=== PATIENT | female | born 1960 | race Caucasian/White ===

== ENCOUNTER 2018-11-06 05:16 | Inpatient (IN) | payer OTHER ==
[2018-11-06] MEDS: CEFAZOLIN 2 GM/50 ML (PMX) 50 ML IVPB (06:20)
[2018-11-06] MEDS: LACTATED RINGER'S 1,000 ML IV* (06:21)
[2018-11-06] MEDS ORDERED: GELATIN SIZE 100 SPONGE (06:43)
[2018-11-06] MEDS: BUPIVACAINE 0.25% (MPF) 30 ML INJ (06:44)
[2018-11-06] MEDS: POLYMYXIN/BACITRACIN 1L IRRIG (06:44)
[2018-11-06] MEDS ORDERED: THROMBIN 5000 UNIT VIAL (06:44)
[2018-11-06] MEDS ORDERED: MIDAZOLAM 1 MG/ML 2 ML INJ (06:56)
[2018-11-06] MEDS ORDERED: FENTAnyl 50 MCG/ML VIAL (06:56)
[2018-11-06] MEDS ORDERED: DESFLURANE 15 MIN (07:00)
[2018-11-06] MEDS ORDERED: FENTAnyl 50 MCG/ML VIAL IV (07:00)
[2018-11-06] MEDS ORDERED: LABETALOL HCL 20MG INJ IV (07:00)
[2018-11-06] MEDS ORDERED: CEFAZOLIN 1 GM INJ (07:00)
[2018-11-06] MEDS ORDERED: HYDROmorphONE 1 MG/5 ML IV SYRINGE IV ×2 (07:00)
[2018-11-06] MEDS ORDERED: METOCLOPRAMIDE 10 MG INJ IV (07:00)
[2018-11-06] MEDS ORDERED: ALBUTEROL 0.083% (NEB) 2.5 MG/3 ML AMP HHN (07:00)
[2018-11-06] MEDS ORDERED: PROPOFOL 20 ML (09:14)
[2018-11-06] MEDS ORDERED: ROCURONIUM 50 MG INJ (09:14)
[2018-11-06] MEDS ORDERED: SUCCINYLCHOLINE CHLORIDE 100 MG/5 ML SYG IV (09:14)
[2018-11-06] MEDS ORDERED: SUGAMMADEX SODIUM 200 MG/2 ML VIAL IV (09:14)
[2018-11-06] MEDS ORDERED: LIDOCAINE 100 MG SYRINGE (09:14)
[2018-11-06] MEDS ORDERED: DEXAMETHASONE 4 MG/ML 5 ML INJ (09:16)
[2018-11-06] MEDS ORDERED: ONDANSETRON 4 MG INJ (09:16)
[2018-11-06] MEDS ORDERED: ZOLPIDEM 5 MG TAB PO (10:00)
[2018-11-06] MEDS ORDERED: DIAZEPAM 5 MG/ML SYG IM (10:00)
[2018-11-06] MEDS ORDERED: CEPASTAT LOZENGE MT (10:00)
[2018-11-06] MEDS ORDERED: NALOXONE (0.4 MG/ML) INJ IV (10:00)
[2018-11-06] MEDS ORDERED: BETHANECHOL 25 MG TAB PO (10:00)
[2018-11-06] MEDS ORDERED: DIAZEPAM 5 MG TAB PO (10:00)
[2018-11-06] MEDS ORDERED: DIPHENHYDRAMINE 50 MG CAP PO (10:00)
[2018-11-06] MEDS ORDERED: NACL 0.9% 3 ML SYG IV (10:00)
[2018-11-06] MEDS ORDERED: PROCHLORPERAZINE 10 MG TAB PO (10:00)
[2018-11-06] MEDS ORDERED: AL HYDROX/MG HYDROX/SIMETH 30 ML CUP PO (10:00)
[2018-11-06] MEDS: HYDROmorphONE 1 MG/5 ML IV SYRINGE IV (10:17)
[2018-11-06] MEDS: MEPERIDINE 25 MG INJ IV (10:17)
[2018-11-06] MEDS: FENTAnyl 50 MCG/ML VIAL IV (10:18)
[2018-11-06] MEDS: ONDANSETRON 4 MG INJ IV ×3 (10:18→22:31)
[2018-11-06] MEDS: HYDROmorphONE 0.2 MG/ML PCA IV ×2 (10:29→21:09)
[2018-11-06] MEDS: DIPHENHYDRAMINE 50 MG INJ IV (10:45)
[2018-11-06] MEDS: DEXTROSE 5%-0.45% NACL 1,000 ML IV ×3 (11:51→23:36)
[2018-11-06] MEDS: CEFAZOLIN 1 GM/50 ML (PMX) 50 ML IVPB ×3 (11:52→22:33)
[2018-11-06] MEDS: RANITIDINE 150 MG TAB PO (21:07)
[2018-11-07 05:17] LABS: HEMATOCRIT 36.1 % (37.0-47.0); HEMOGLOBIN 11.6 g/dl (12.0-16.0)
[2018-11-07] MEDS: CEFAZOLIN 1 GM/50 ML (PMX) 50 ML IVPB (05:22)
[2018-11-07 05:36] LABS: ANION GAP 7 (5-13); BLOOD UREA NITROGEN 13 mg/dl (7-20); CALCIUM 8.7 mg/dl (8.4-10.2); CARBON DIOXIDE 26 mmol/L (21-31); CHLORIDE 106 mmol/L (97-110); CREATININE 0.58 mg/dl (0.44-1.00); Estimated GFR > 60 mL/min (>60); GLUCOSE 133 mg/dl (70-220); POTASSIUM 3.7 mmol/L (3.5-5.1); SODIUM 139 mmol/L (135-144)
[2018-11-07] MEDS: ONDANSETRON 4 MG INJ IV (07:15)
[2018-11-07] MEDS ORDERED: BETHANECHOL 25 MG TAB PO (08:00)
[2018-11-07] MEDS: RANITIDINE 150 MG TAB PO ×2 (09:03→20:58)
[2018-11-07] MEDS: DOCUSATE SODIUM 100 MG CAP PO ×2 (09:03→20:59)
[2018-11-07] MEDS: FERROUS SULFATE (EC) 325 MG TAB PO ×3 (09:03→20:59)
[2018-11-07] MEDS: ASCORBIC ACID 500 MG TAB PO ×2 (09:03→20:59)
[2018-11-07] MEDS: OXYCODONE/ACETAMINOPHEN (5/325) TAB PO ×3 (09:04→20:12)
[2018-11-07] MEDS: TRIMETHOBENZAMIDE 100 MG/ML VIAL IM (10:16)
[2018-11-07] MEDS: DEXTROSE 5%-0.45% NACL 1,000 ML IV (11:13)
[2018-11-07] MEDS ORDERED: METOCLOPRAMIDE 10 MG INJ IV (11:30)
[2018-11-07 18:39] LABS: ADD UMIC YES; UR ASCORBIC ACID NEGATIVE (NEGATIVE); UR BACTERIA FEW /HPF (NONE SEEN); UR BILIRUBIN (Dip) NEGATIVE (NEGATIVE); UR BLOOD (Dip) 2+ mg/dL (NEGATIVE); UR CLARITY CLEAR (CLEAR); UR COLOR STRAW (YELLOW); UR GLUCOSE (Dip) NEGATIVE (NEGATIVE); UR KETONES (Dip) NEGATIVE (NEGATIVE); UR LEUKOCYTE ESTERASE (Dip) 1+ Leu/ul (NEGATIVE); UR NITRITE (Dip) NEGATIVE (NEGATIVE); UR RBC 7 /HPF (0-5); UR SPECIFIC GRAVITY (Dip) 1.005 (1.003-1.030); UR TOTAL PROTEIN (Dip) NEGATIVE (NEGATIVE); UR UROBILINOGEN (Dip) NEGATIVE (NEGATIVE); UR WBC 2 /HPF (0-5)
[2018-11-08] MEDS: DEXTROSE 5%-0.45% NACL 1,000 ML IV ×2 (01:56→11:56)
[2018-11-08] MEDS: OXYCODONE/ACETAMINOPHEN (5/325) TAB PO ×3 (02:01→12:15)
[2018-11-08] MEDS: ONDANSETRON 4 MG INJ IV (08:50)
[2018-11-08] MEDS: ASCORBIC ACID 500 MG TAB PO (08:56)
[2018-11-08] MEDS: FERROUS SULFATE (EC) 325 MG TAB PO ×2 (08:56→13:00)
[2018-11-08] MEDS: RANITIDINE 150 MG TAB PO (08:56)
[2018-11-08] MEDS: DOCUSATE SODIUM 100 MG CAP PO (08:56)
[2018-11-08] MEDS: ACETAMINOPHEN 325 MG TAB PO (17:24)
== END 2018-11-08 20:55 | disposition home or self-care (01) | DRG 517 ==
LOC: REC 05:16 → MS1 11:04
PROC: 01NB0ZZ Release Lumbar Nerve, Open Approach (ICD-10-PCS; principal; 2018-11-06 07:00)
DX: M48.061 Spinal stenosis, lumbar region without neurogenic claudication (principal)
CPT/HCPCS: 72020; 80048; 81001; 85014; 85018; 86850; 86900; 86901; 86920; 87086; 88304; 88311; 97110; 97116; 97161; 97530